=== PATIENT | male | born 1995 | race Hispanic/Latino ===

== ENCOUNTER 2021-01-22 14:28 | Outpatient (CLI) | payer OTHER, MEDICAID, SELFPAY ==
--- NOTE | ~2021-01-22 | XR_ITS ---
EXAMINATION: XR thoracic spine 3V DATE: 01/22/2021 15:03 INDICATION: Back pain TECHNIQUE: AP, lateral and lateral swimmer's views of the thoracic spine were obtained. COMPARISON: None. FINDINGS: There is no fracture, dislocation, or subluxation. The vertebral body heights, alignment, a nd intervertebral disc spaces are normal. The paravertebral soft tissues are unremarkable. IMPRESSION: 1. No acute osseous abnormality. Reviewed, dictated and finalized at location A.
--- NOTE | ~2021-01-22 | XR_ITS ---
EXAMINATION:XR cervical spine 4-5V DATE: 01/22/2021 15:03 INDICATION: Neck pain TECHNIQUE: AP, lateral, lateral swimmers and odontoid views of the cervical spine are provided. COMPARISON: None FINDINGS: Alignment is normal. The odontoid is intact. No fracture is identified. Vertebral body heig hts and disk spaces are normal. Prevertebral soft tissues are normal. IMPRESSION: 1. No acute osseous abnormality. Reviewed, dictated and finalized at location A.
--- NOTE | ~2021-01-22 | XR_ITS ---
EXAMINATION: XR lumbar spine 2-3V DATE: 01/22/2021 15:03 INDICATION: Low back pain TECHNIQUE: Anteroposterior and lateral views of the lumbar spine, and cone-down lateral view of the l umbosacral junction were obtained. COMPARISON: None. FINDINGS: There is no fracture. There appear to be bilateral L5 pars defects 2 mm of anterolisthesis of L5 on S1. There are 3 mm of retrolisthesis of L4 on L5. The vertebral body heights and interverteb ral disc spaces are maintained. IMPRESSION: 1. Likely L5 pars defects with 2 mm of anterolisthesis of L5 on S1. 2. Minimal retrolisthesis of L4 on L5. Reviewed, dictated and finalized at location A.
== END 2021-01-22 14:29 | disposition home or self-care (01) ==
PROVIDERS: Visit Provider Physician Assistant
DX: M54.5 Low back pain (principal); M54.2 Cervicalgia; M54.6 Pain in thoracic spine
CPT/HCPCS: 72050; 72072; 72100

== ENCOUNTER 2023-05-21 07:31 | Emergency (ER) | payer OTHER, SELFPAY ==
--- NOTE | ~2023-05-21 | CT_ITS ---
EXAMINATION: CT abdomen pelvis wo con DATE: 05/21/2023 09:49 INDICATION: Right flank pain TECHNIQUE: Computed tomography (CT) of the abdomen and pelvis was performed without intravenous contr ast. The dose-length product (DLP) was 882.20 mGy-cm. Automated exposure control and iterative recons truction technique were employed. COMPARISON: None FINDINGS: Minimal dependent atelectasis is present in the lung bases. The heart size is normal. The l iver is diffusely low in attenuation when compared with the spleen, consistent with hepatic steatosis . The spleen, pancreas, gallbladder, and adrenal glands are normal. The kidneys are unremarkable. No stones are identified in the kidneys, ureters, or bladder. No pathologically enlarged abdominal or pelvic lymph nodes are identified. No free intraperitoneal ga s or evidence of bowel obstruction. The appendix is normal. There is an umbilical hernia containing f at. IMPRESSION: 1. No CT correlate for the patient's symptoms. 2. Diffuse hepatic steatosis. Reviewed, dictated and finalized at location F. 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
[2023-05-21 07:34] VITALS: BP 145/85; PULSE 71; RESP 16; TEMP 36.4; O2SAT 98
[2023-05-21 08:42] VITALS: BP 142/94; PULSE 73; RESP 16; O2SAT 99
[2023-05-21 08:58] LABS: Basophils Absolute Auto 0.1 K/mm3 (0.0-0.1); Basophils Percent Auto 0.9 % (0.2-1.2); Eosinophils Absolute Auto 0.3 K/mm3 (0-0.3); Eosinophils Percent Auto 3.1 % (0-4.4); Hematocrit 43.7 % (42.0-52.0); Hemoglobin 14.4 g/dL (14.0-18.0); Immature Granulocyte Absolute 0.03 K/mm3 (0.00-0.031); Immature Granulocyte Percent A 0.3 % (0-0.5); Lymphocytes Absolute Auto 1.81 K/mm3 (0.9-3.2); Lymphocytes Percent Auto 20.9 % (18.3-44.2); Mean Corpuscular Hemoglobin 28.2 pg (26-34); Mean Corpuscular Volume 85.7 fl (80-100); Monocytes Absolute Auto 0.7 K/mm3 (0.1-0.6); Monocytes Percent Auto 8.5 % (2.6-8.5); Neutrophils Absolute Auto 5.7 K/mm3 (1.3-6.7); Neutrophils Percent Auto 66.3 % (45.5-73.1); Platelet Count Result 289 k/mm3 (150-375); Red Cell Distribution Width 12.7 % (11.5-14.5); White Blood Count 8.7 K/mm3 (4.5-10.0)
[2023-05-21 09:05] LABS: Appearance Urine Clear (Clear); Bilirubin Urine Negative (Negative); Blood Urine Negative (Negative); Color Urine Yellow (Yellow); Glucose Urine UA Negative (Negative); Ketones Urine Negative (Negative); Leukocyte Esterase Ur Negative LEU/UL (Negative); Nitrate Urine Negative (Negative); Protein Urine Negative (Negative); Specific Grav Ur 1.013 (1.001-1.035); Urobilinogen Urine 0.2 mg/dL (<2.0)
[2023-05-21 09:10] LABS: Alanine Aminotransferase 61 U/L (6-50); Albumin Level 4.2 g/dL (3.5-5.1); Alkaline Phosphatase 67 U/L (38-126); Anion Gap 7 mmol/L (8-16); Aspartate Amino Transferase 40 U/L (17-59); Bilirubin,Total 0.5 mg/dL (0.2-1.3); Blood Urea Nitrogen 9 mg/dL (9-20); Calcium 8.9 mg/dL (8.4-10.2); Carbon Dioxide 28 mmol/L (22-30); Chloride 103 mmol/L (98-107); Estimated CRCL calculation 164 ml/min; Estimated Glomerular Filt Rate > 60; Glucose 99 mg/dL (65-110); Sodium 138 mmol/L (137-145)
[2023-05-21 09:15] LABS: Add Urine Microscopic? NO
--- NOTE | 2023-05-21 09:31 | ED.GENADULT ---
HPI - General Adult General Chief complaint: Urogenital-Male Stated complaint: abdominal pain and pain with urination Time Seen by Provider: 05/21/23 09:01 Source: patient Mode of arrival: ambulatory Limitations: no limitations History of Present Illness HPI narrative: This is a 27-year-old male who presents to the ED with chief complaint of dysuria x3 days. Reports an increased urgency and frequency of urination along with stinging her he pees. Reports some lower abdominal discomfort as well. Describes it as a pressure. States that sometimes radiates to the right abdomen. Denies penile lesions, scrotal swelling or pain. Denies any concern for STDs. Denies fevers, chills, nausea, vomiting. Related Data Home Medications Medication Instructions Recorded Confirmed bupropion HCl 150 mg 24 hr tablet, mg PO 05/21/23 extended release prazosin 2 mg capsule mg 05/21/23 05/21/23 quetiapine 50 mg tablet mg 05/21/23 trazodone 100 mg tablet mg 05/21/23 venlafaxine 150 mg mg PO 05/21/23 capsule,extended release 24 hr Allergies Allergy/AdvReac Type Severity Reaction Status Date / Time No Known Allergies Allergy Unverified 05/21/23 07:32 Review of Systems Review of Systems: All systems as dictated in HPI Exam Narrative: GENERAL: Well-appearing, well-nourished, and in no acute distress. HEAD: Normocephalic, atraumatic. EYES: PERRLA and EOMI. ENT: Nares clear, no rhinorrhea or epistaxis. Mucous membranes moist. Oropharynx without tonsillar hypertrophy exudate or other lesions. NECK: Supple. No adenopathy or masses. CHEST: No respiratory distress. Clear to auscultation. No wheezes rales or rhonchi HEART: Regular rate and rhythm. No murmur heard. Normal peripheral pulses. ABDOMEN: Soft, nontender, nondistended, normal active bowel sounds. MSK: Normal range of motion. No edema. SKIN: Warm, dry, no rash. NEURO: Alert and oriented x3. No focal deficits. PSYCH: Normal mood and affect. Course Vital Signs Vital signs: Vital Signs Temperature 97.5 F L 05/21/23 07:34 Pulse Rate 71 05/21/23 07:34 Respiratory Rate 16 05/21/23 07:34 Blood Pressure 145/85 H 05/21/23 07:34 Pulse Oximetry 98 05/21/23 07:34 Temperature 97.5 F L 05/21/23 07:34 Pulse Rate 90 05/21/23 12:42 Respiratory Rate 15 05/21/23 12:42 Blood Pressure 136/91 H 05/21/23 12:42 Pulse Oximetry 100 05/21/23 12:42 Medical Decision Making MDM Narrative Medical decision making narrative: This is a 19-year-old male who presents to the ED with chief complaint of dysuria and abdominal discomfort. Vitals are normal. Exam reveals some right flank tenderness. Lab work is largely unremarkable. Urinalysis is grossly negative. STD tests for gonorrhea, chlamydia, trich are negative. CT scan does not show any acute findings. He is asymptomatic for re-evaluation. Discussed negative workup today and that he may need to follow with urology. He is agreeable with this plan. Pt will be discharged in stable condition. Return precautions given and supportive measures discussed. Pt is understanding and agreeable with plan for discharge and follow-up with PCP/specialist. Vital Signs Vital Signs: Vital Signs Temperature 97.5 F L 05/21/23 07:34 Pulse Rate 71 05/21/23 07:34 Respiratory Rate 16 05/21/23 07:34 Blood Pressure 145/85 H 05/21/23 07:34 Pulse Oximetry 98 05/21/23 07:34 Temperature 97.5 F L 05/21/23 07:34 Pulse Rate 90 05/21/23 12:42 Respiratory Rate 15 05/21/23 12:42 Blood Pressure 136/91 H 05/21/23 12:42 Pulse Oximetry 100 05/21/23 12:42 Lab Data 05/21/23 08:53 05/21/23 08:53 Labs: Lab Results 05/21/23 Range/Units 08:53 WBC 8.7 (4.5-10.0) K/mm3 RBC 5.10 (4.6-6.20) M/mm3 Hgb 14.4 (14.0-18.0) g/dL Hct 43.7 (42.0-52.0) % MCV 85.7 (80-100) fl MCH 28.2 (26-34) pg MCHC 33.0 (32-36) g/dl RDW 12.7 (11.5-14.5)
[2023-05-21 10:44] VITALS: BP 141/89; PULSE 71; RESP 19; O2SAT 100
[2023-05-21 11:48] LABS: Trichomonas Vag PCR NOT DETECTED (NOT DETECTE)
[2023-05-21 12:10] LABS: Chlamydia trachomatis NOT DETECTED (NOT DETECTE); Neisseria gonorrhoeae PCR NOT DETECTED (NOT DETECTE)
[2023-05-21 12:42] VITALS: BP 136/91; PULSE 90; RESP 15; O2SAT 100
== END 2023-05-21 12:47 | disposition home or self-care (01) ==
PROVIDERS: General Practice; Emergency Provider Physician Assistant
DX: R30.0 Dysuria (principal); K76.0 Fatty (change of) liver, not elsewhere classified
CPT/HCPCS: 36415; 74176; 80053; 81003; 85025; 87491; 87591; 87661; 99284

== ENCOUNTER 2023-08-18 08:48 | Emergency (ER) | payer OTHER, SELFPAY ==
--- NOTE | 2023-08-18 08:55 | ED.URI ---
HPI - URI/Sore Throat General Chief Complaint: Upper Respiratory Infection Stated Complaint: Sore Throat,Stomach Pain, Eye Irritation Time Seen by Provider: 08/18/23 08:53 Source: patient Mode of arrival: ambulatory Limitations: no limitations History of Present Illness HPI Narrative: Patient is a 28-year-old male who presents with 1 week of congestion, sore throat, abdominal pain and eye discharge. Reports children had same symptoms last week and resolved on their own. Patient has been taking ibuprofen. Patient states he has allergies to many outdoor allergens along with cats. Patient states he has a cat that has been sleeping with him and does not take daily allergy medicine. Has not taken any other medication for cold and flu symptoms. Denies any fever, chills, nausea, vomiting, diarrhea. Related Data Home Medications Medication Instructions Recorded Confirmed bupropion HCl 150 mg 24 hr tablet, 450 mg PO DAILY 05/21/23 08/18/23 extended release prazosin 2 mg capsule 4 mg PO HS 05/21/23 08/18/23 quetiapine 50 mg tablet 100 mg PO DAILY 05/21/23 08/18/23 trazodone 100 mg tablet 150 mg PO HS 05/21/23 08/18/23 venlafaxine 150 mg 75 mg PO DAILY 05/21/23 08/18/23 capsule,extended release 24 hr lisdexamfetamine 30 mg capsule 30 mg PO DAILY 08/18/23 08/18/23 (Vyvanse) Allergies Allergy/AdvReac Type Severity Reaction Status Date / Time No Known Allergies Allergy Verified 08/18/23 09:16 Review of Systems Review of Systems: All systems reviewed & are unremarkable except as noted in HPI and below Constitutional: Constitutional: Denies body ache(s), Denies chills, Denies fatigue, Denies fever(s), Denies headache(s), Denies malaise and Denies weakness Eyes: Eyes: Denies blurry vision, Reports eye discharge, Reports itchy eyes and Denies loss of vision ENT: Denies otalgia, Denies headache(s), Reports nasal congestion, Denies sinus pain and Reports sore throat Cardiovascular: Cardiovascular: Denies chest pain, Denies irregular heart rhythm and Denies dyspnea Respiratory: Respiratory: Denies cough and Denies dyspnea Gastrointestinal: Gastrointestinal: Reports abdominal pain, Denies diarrhea, Denies nausea and Denies vomiting Musculoskeletal: Musculoskeletal: Denies back pain, Denies myalgias and Denies arthralgias Integumentary/Breasts: Skin/Breast: Denies pruritus and Denies rash Neurologic: Denies headache(s), Denies loss of vision and Denies weakness Psychiatric: Psychiatric: Reports no additional psychiatric complaints Endocrine: Endocrine: Denies fatigue Allergic/Immunologic: Allergic/Immunologic: Denies itchy eyes PMFSH Comments At time of signature, agree with nursing past medical, surgical, social and family history. There is no relevant family history pertinent to the presenting complaint. Exam Const: General: cooperative, healthy appearing, comfortable, no acute distress and well nourished Nutritional Appearance: well nourished Orientation/consciousness: patient oriented x3 Limitations: no limitations HENMT: Head: normal to inspection, normocephalic and atraumatic Ears: hearing grossly normal bilaterally, external ears normal, TM's normal bilaterally, EAC's normal and no periauricular adenopathy Face/Nose/Sinus: Normal external nose present, Normal nasal mucous membranes and turbinates present, normal facial exam, sinuses nontender and face symmetric Face and sinus: normal facial exam, sinuses nontender and face symmetric Mouth: Yes Normal oral and palatal mucosa present, Yes lip normal, Yes tongue normal, Yes Normal salivary glands and ducts present, Yes oropharynx normal and Yes moist mucous membranes Teeth and gingiva: dentition normal Throat: uvula midline, posterior oropharynx abnormal erythema, postnasal drainage and tonsils absent Eyes: General: appearance normal, both eyes and all related structures Alignment and Position: alignment normal and position normal Periorbital: periorbital fi
[2023-08-18 09:19] VITALS: BP 126/84; PULSE 87; RESP 16; TEMP 36.4; O2SAT 98
== END 2023-08-18 09:55 | disposition home or self-care (01) ==
PROVIDERS: Emergency Provider Nurse Practitioner Family
DX: H10.33 Unspecified acute conjunctivitis, bilateral (principal); J06.9 Acute upper respiratory infection, unspecified; Z20.822 Contact with and (suspected) exposure to COVID-19; F41.9 Anxiety disorder, unspecified; F32.A Depression, unspecified; F90.9 Attention-deficit hyperactivity disorder, unspecified type; Z86.16 Personal history of COVID-19
CPT/HCPCS: 87081; 87426; 87804; 87880; 99213; G0463

== ENCOUNTER 2023-10-28 09:59 | Emergency (ER) | payer OTHER, SELFPAY ==
--- NOTE | ~2023-10-28 | XR_ITS ---
EXAMINATION: XR chest 2V DATE: 10/28/2023 11:17 INDICATION: 5 days of cough and fever TECHNIQUE: PA and lateral views of the chest were obtained. COMPARISON: Chest radiograph dated 02/28/19 FINDINGS: There is subtle opacities in the left lower lung zone suspicious for pneumonia. Calcified nodules in the left midlung zone consistent with old granulomatous disease. Right lung is clear. No pulmonary ed patel, pleural effusion or pneumothorax. The cardiomediastinal silhouette is normal. IMPRESSION: 1. Subtle opacities in the left lower lung zone which are suspicious for pneumonia. Reviewed, dictated and finalized at location A. IMPRESSION: 1. Subtle opacities in the left lower lung zone which are suspicious for pneumo luis eduardo.
[2023-10-28 10:31] VITALS: BP 124/80; PULSE 92; RESP 18; TEMP 36.4; O2SAT 100
--- NOTE | 2023-10-28 11:16 | ED.URI ---
HPI - URI/Sore Throat General Chief Complaint: Upper Respiratory Infection Stated Complaint: fever,cough Time Seen by Provider: 10/28/23 11:04 Source: patient and RN notes reviewed Mode of arrival: ambulatory Limitations: no limitations History of Present Illness HPI Narrative: Patient presents today with a 5 6 day history of productive cough, nasal congestion, body aches, fatigue, and fever up to 102. He has been taking ibuprofen, Tylenol, Benadryl, and Mucinex with some relief. States medication does bring down his fever for short periods. States he does feel intermittently short of breath as well. History of asthma for which he does use an albuterol inhaler at times. Related Data Home Medications Medication Instructions Recorded Confirmed bupropion HCl 150 mg 24 hr tablet, 450 mg PO DAILY 05/21/23 10/28/23 extended release albuterol sulfate 90 mcg/actuation 2 puff inhalation QID PRN asthma 10/28/23 10/28/23 aerosol inhaler Allergies Allergy/AdvReac Type Severity Reaction Status Date / Time No Known Allergies Allergy Verified 10/28/23 10:34 Review of Systems Review of Systems: CONSTITUTIONAL: + body aches, fatigue, fever EYES: Denies visual changes, redness, or discharge. ENT: Denies rhinorrhea, sore throat, or otalgia.+ congestion CARDIOVASCULAR: Denies chest pain, palpitations, or edema. RESPIRATORY: + cough, shortness of breath GASTROINTESTINAL: Denies abdominal pain, nausea, vomiting, or diarrhea. GENITOURINARY: Denies dysuria or hematuria. SKIN: Denies rash, itching, or wounds. MUSCULOSKELETAL: Denies back pain, joint pain, or myalgia. NEUROLOGIC: Denies headache, numbness, tingling, or weakness. PSYCH: Denies depression or anxiety. [facility] Past Medical History Medical History (Updated 10/28/23 @ 11:55 by Mellisa Godoy, AUTOMAT WATCHER, ) Asthma PTSD (post-traumatic stress disorder) Comments At time of signature, I have reviewed and agree with nursing past medical, surgical, social and family history unless otherwise noted. Please see nursing chart for further information. There is no relevant family history pertinent to the presenting complaint Exam Narrative: GENERAL: Mildly ill-appearing, well-nourished, and in no acute distress. HEAD: Normocephalic, atraumatic. EYES: EOMI. No redness or drainage. Conjunctivae normal. ENT: Mucous membranes pink and moist. Nares congested with rhinorrhea. TMs normal bilaterally. Throat normal. Uvula midline. NECK: Normal AROM. Supple. No lymphadenopathy. CHEST: No respiratory distress. Expiratory wheezing in the right upper lower lobes, otherwise clear HEART: Regular rate and rhythm. No murmur appreciated. EXTREMITIES: Normal range of motion. No edema. SKIN: Warm, dry, no rash. Capillary refill normal. Normal skin turgor. NEURO: No focal deficits. Alert and oriented x3. Gait steady. PSYCH: Normal affect. No signs of depression or anxiety. Course Course Level of Care: Express Care Visit Vital Signs Vital signs: Vital Signs Temperature 97.5 F L 10/28/23 10:31 Pulse Rate 92 10/28/23 10:31 Respiratory Rate 18 10/28/23 10:31 Blood Pressure 124/80 10/28/23 10:31 Pulse Oximetry 100 10/28/23 10:31 Oxygen Delivery Room Air 10/28/23 10:31 Temperature 97.5 F L 10/28/23 10:31 Pulse Rate 92 10/28/23 11:27 Respiratory Rate 18 10/28/23 11:27 Blood Pressure 124/80 10/28/23 10:31 Pulse Oximetry 100 10/28/23 11:27 Oxygen Delivery Room Air 10/28/23 10:31 Reviewed MDM - URI/Sore Throat MDM Narrative Medical decision making narrative: X-ray shows area suspicious for pneumonia in the left lower lobe. Patient has been given a DuoNeb during his visit. Will treat with Augmentin and azithromycin. Patient would also like cough medicine. Will treat with Tessalon Perles. Will refill his albuterol inhaler. Anticipatory guidance given. Differential Diagnosis Differential diagnosis: Likely upper respiratory
[2023-10-28 11:27] VITALS: PULSE 92; RESP 18; O2SAT 100
[2023-10-28] MEDS: IPRATROPIUM BR 0.02% INH SOLN 0.5 MG/2.5 ML VIAL INHALATION (11:34)
[2023-10-28] MEDS: ALBUTEROL SULFATE NEB 2.5 MG/3 ML INH INHALATION (11:34)
[2023-10-28 11:55] VITALS: PULSE 90; RESP 18; O2SAT 98
== END 2023-10-28 11:59 | disposition home or self-care (01) ==
PROVIDERS: Emergency Provider Nurse Practitioner
DX: J18.9 Pneumonia, unspecified organism (principal); J45.909 Unspecified asthma, uncomplicated
CPT/HCPCS: 71046; 94640; 99213; G0463

== ENCOUNTER 2024-03-29 14:19 | Emergency (ER) | payer OTHER, SELFPAY ==
[2024-03-29 14:30] VITALS: BP 121/78; PULSE 105; RESP 18; TEMP 36.8; O2SAT 96
[2024-03-29 14:32] VITALS: BP 121/78; PULSE 105; RESP 18; TEMP 36.8; O2SAT 96
--- NOTE | 2024-03-29 14:36 | ED.URI ---
HPI - URI/Sore Throat General Chief Complaint: Upper Respiratory Infection Stated Complaint: strep test Time Seen by Provider: 03/29/24 14:36 Source: patient Mode of arrival: ambulatory Limitations: no limitations History of Present Illness HPI Narrative: 28-year-old male presents with complaint of scratchy, sore throat for 1 day. Afebrile. Reports fatigue. Reports strep exposure from his children and . No other symptoms today. All systems reviewed and negative except as noted above. Related Data Home Medications Medication Instructions Recorded Confirmed bupropion HCl 150 mg 24 hr tablet, 450 mg PO DAILY 05/21/23 03/29/24 extended release albuterol sulfate 90 mcg/actuation 2 puff inhalation QID PRN asthma 10/28/23 03/29/24 aerosol inhaler aripiprazole 10 mg tablet 10 mg PO DAILY 03/29/24 03/29/24 trazodone 150 mg tablet 150 mg PO HS 03/29/24 03/29/24 zolpidem 5 mg tablet 5 mg PO HS 03/29/24 03/29/24 Allergies Allergy/AdvReac Type Severity Reaction Status Date / Time No Known Allergies Allergy Verified 03/29/24 14:22 Review of Systems Review of Systems: CONSTITUTIONAL: Denies fever, chills, or sweats. reports fatigue. EYES: Denies visual changes, redness, or discharge. ENT: Denies rhinorrhea, congestion . Reports sore throat. Denies otalgia. CARDIOVASCULAR: Denies chest pain, palpitations, or edema. RESPIRATORY: Denies cough or dyspnea. GASTROINTESTINAL: Denies abdominal pain, nausea, vomiting, or diarrhea. GENITOURINARY: Denies dysuria or hematuria. SKIN: Denies rash or itching. MUSCULOSKELETAL: Denies back pain, joint pain, or myalgia. NEUROLOGIC: Denies headache, numbness, or weakness. PSYCHIATRIC: Denies anxiety or depression. All other systems reviewed are negative, except as documented in HPI. PMFSH Past Medical History Medical History (Updated 03/29/24 @ 14:42 by Chika Sandoval NP) Asthma PTSD (post-traumatic stress disorder) Comments At time of signature, agree with nursing past medical, surgical, social and family history. There is no relevant family history pertinent to the presenting complaint. Exam Narrative: GENERAL: This is a well-nourished, well-developed patient, in no apparent distress. HEAD: normocephalic, atraumatic. EYES: PERRL. Sclera clear/white. Vision is grossly intact. EARS: External ears normal, auditory canals clear and without drainage, TMs normal without perforation. Hearing grossly intact. NOSE: External nose normal with no obvious nasal discharge, nares without redness, no rhinorrhea. THROAT: Mucous membranes moist, Erythema, swelling, tonsils 1+ bilaterally without exudates. NECK: Neck supple, non-tender without lymphadenopathy, masses or thyromegaly. CARDIOVASCULAR: Regular rate and rhythm without murmurs, gallops, or rubs. RESPIRATORY: Clear to auscultation. Breath sounds equal bilaterally. No wheezes, rales, or rhonchi. SKIN: warm, Dry, intact with no suspicious lesions or rash, good texture and turgor. NEURO: awake, alert, and oriented to person, place and time. There were no obvious focal neurologic abnormalities. EXTREMITIES: No joint tenderness, effusion, or edema noted. Course Course Level of Care: Express Care Visit Vital Signs Vital signs: Vital Signs Temperature 36.8 C 03/29/24 14:30 Pulse Rate 105 H 03/29/24 14:30 Respiratory Rate 18 03/29/24 14:30 Blood Pressure 121/78 03/29/24 14:30 Pulse Oximetry 96 03/29/24 14:30 Oxygen Delivery Room Air 03/29/24 14:30 Temperature 36.8 C 03/29/24 14:32 Pulse Rate 105 H 03/29/24 14:32 Respiratory Rate 18 03/29/24 14:32 Blood Pressure 121/78 03/29/24 14:32 Pulse Oximetry 96 03/29/24 14:32 Oxygen Delivery Room Air 03/29/24 14:32 Reviewed MDM - URI/Sore Throat MDM Narrative Medical decision making narrative: Patient is aware of diagnosis, understands and agrees to treatment plan. Anticipatory guidance given. Patient agrees
[2024-03-29 14:40] LABS: EDSTREPNEGPOS1 Positive (Negative)
== END 2024-03-29 14:44 | disposition home or self-care (01) ==
PROVIDERS: Emergency Provider Nurse Practitioner Family
DX: J02.0 Streptococcal pharyngitis (principal); J45.909 Unspecified asthma, uncomplicated
CPT/HCPCS: 87880; 99213; G0463

== ENCOUNTER 2024-07-04 09:39 | Emergency (ER) | payer OTHER, SELFPAY ==
--- NOTE | ~2024-07-04 | XR_ITS ---
CHEST RADIOGRAPH, PA AND LATERAL CLINICAL HISTORY: cough fever . COMPARISON: 10/28/2023 TECHNIQUE: PA and lateral views of the chest. FINDINGS The cardiomediastinal silhouette is unremarkable. Consolidation within the right mid to lower lung field. The remainder of the lungs are clear. Visualized osseous structures and soft tissues are unremarkable. IMPRESSION: Infiltrate within the superior segment of the right lower lobe, as detailed above. Reviewed, dictated and finalized at location A. HER OPERATOR IMPRESSION: Infiltrate within the superior segment of the right lower lobe, as detailed abo ve.
[2024-07-04 09:51] VITALS: BP 133/66; PULSE 117; RESP 18; TEMP 36.6; O2SAT 95
--- NOTE | 2024-07-04 10:04 | ED.URI ---
HPI - URI/Sore Throat General Chief Complaint: Upper Respiratory Infection Stated Complaint: cough Time Seen by Provider: 07/04/24 10:05 Source: patient Mode of arrival: ambulatory Limitations: no limitations History of Present Illness HPI Narrative: 28 y/o male presented for c/o cough, subjective fever/chills, nasal congestion, and fatigue. Onset 4 days. Denies sob, wheezing, n/v/d. Endorses family members with pneumonia. Taking Dayquil. Related Data Home Medications ?Medication ?Instructions ?Recorded ?Confirmed ?Last Taken ?Type bupropion HCl 150 mg 24 hr tablet, 450 mg PO DAILY 05/21/23 05/01/24 Unknown History extended release albuterol sulfate 90 mcg/actuation 2 puff inhalation QID PRN asthma 10/28/23 05/01/24 Unknown History aerosol inhaler aripiprazole 10 mg tablet 10 mg PO DAILY 03/29/24 05/01/24 Unknown History trazodone 150 mg tablet 150 mg PO HS 03/29/24 05/01/24 Unknown History zolpidem 5 mg tablet 5 mg PO HS 03/29/24 05/01/24 Unknown History Allergies Allergy/AdvReac Type Severity Reaction Status Date / Time No Known Allergies Allergy Verified 07/04/24 09:53 Review of Systems Review of Systems: CONSTITUTIONAL: Denies body aches, fever, chills, or sweats. EYES: Denies visual changes, redness, or discharge. ENT: Denies rhinorrhea, congestion, sore throat, or otalgia. CARDIOVASCULAR: Denies chest pain, palpitations, or edema. RESPIRATORY: Reports cough, denies sob, wheezing. GASTROINTESTINAL: Denies abdominal pain, nausea, vomiting, or diarrhea. MUSCULOSKELETAL: Denies back pain, joint pain, or myalgia. NEUROLOGIC: Denies headache, numbness, tingling, or weakness. All systems reviewed & are unremarkable except as noted in HPI and below PMFSH Past Medical History Medical History PTSD (post-traumatic stress disorder) Asthma Comments At time of signature, I have reviewed and agree with nursing past medical, surgical, social and family history unless otherwise noted. Please see nursing chart for further information. There is no relevant family history pertinent to the presenting complaint Exam Narrative: GENERAL: Well-appearing, in no acute distress. EYES: EOMI. No redness or drainage. Conjunctivae normal. ENT: Mucous membranes pink and moist. No rhinorrhea. TMs normal bilaterally. Throat normal. Uvula midline. NECK: Normal AROM. Supple. CHEST: No respiratory distress. Diminished to bases HEART: Regular rate and rhythm. No murmur appreciated. SKIN: Warm, dry, no rash. Capillary refill normal. Normal skin turgor. NEURO: Alert and oriented x3. Gait steady. PSYCH: Normal affect. Course Course Emergency Course: Patient is aware of diagnosis, understands and agrees to treatment plan. Anticipatory guidance given. Patient agrees to follow-up as directed and is aware of reasons to seek care at the emergency department. Portions of this record may have been created with voice recognition software Level of Care: Express Care Visit Vital Signs Vital signs: Vital Signs Temperature 97.8 F 07/04/24 09:51 Pulse Rate 117 H 07/04/24 09:51 Respiratory Rate 18 07/04/24 09:51 Blood Pressure 133/66 07/04/24 09:51 Pulse Oximetry 95 07/04/24 09:51 Oxygen Delivery Room Air 07/04/24 09:51 Temperature 97.8 F 07/04/24 09:51 Pulse Rate 117 H 07/04/24 09:51 Respiratory Rate 18 07/04/24 09:51 Blood Pressure 133/66 07/04/24 09:51 Pulse Oximetry 95 07/04/24 09:51 Oxygen Delivery Room Air 07/04/24 09:51 MDM - URI/Sore Throat MDM Narrative Medical decision making narrative: Discussed physical exam findings, negative flu, COVID, reviewed with patient. And reviewed chest x-ray right lung pneumonia. Advised supportive measures and signs/symptoms to go to the ER. Pt is appropriate for outpt treatment and f/u. Differential Diagnosis Differential diagnosis: Likely viral infection, bronchitis, influenza and other (Pneumonia) Imaging Data Radiologist's impression: Patient: Jordan Rivera : 1995 MR#: [id number] Age: 28 Acct:[id number] Loc: [facility] ADM Date: 07/04/24Attending Dr: Ordering Physician: Clarisse Crisostomo APRN Date of Service: 07/04/24 Procedure(s): XR chest 2V Accession Number(s): [id number] cc: Ritesh,Clarisse Denton APRN~ CHEST RADIOGRAPH, PA AND LATERAL CLINICAL HISTORY: cough fever . COMPARISON: 10/28/2023 TECHNIQUE: PA and lateral views of the chest. FINDINGS The cardiomediastinal silhouette is unremarkable. Consolidation within the right mid to lower lung field. The remainder of the lungs are clear. Visualized osseous structures and soft tissues are unremarkable. IMPRESSION: Infiltrate within the superior segment of the right lower lobe, as detailed above. Discharge Plan Discharge Clinical Impression: Pneumonia Patient Disposition: Home, Self-Care Condition: Stable Instructions: Antibiotic Form, Pneumonia (ED) Additional Instructions: Pneumonia is a lung infection that can cause a fever, cough, and trouble breathing. How it spreads: When someone with bacterial pneumonia coughs, sneezes, or talks, they release respiratory droplets into the air that can be inhaled by others.?You can also get pneumonia by touching a contaminated surface or object and then touching your mouth or nose. You're generally contagious for around 48 hours after starting antibiotics and your fever goes away.? To prevent the spread of pneumonia, you can:? ? Get vaccinated? ? Wash your hands often with soap and water for 20 seconds? ? Cover your mouth with a tissue when you cough or sneeze? ? Avoid people who are already sick with pneumonia? ? Stay home when you have pneumonia Take antibiotics as directed until complete. eat small frequent meals. Get lots of rest and drink fluids. Alternate Tylenol and ibuprofen for pain/fever [id number] cough medication can cause drowsiness, take according to package directions If you have nasal congestion, you can take Zyrtec, Claritin along with Flonase spray Call your Primary Care Doctor and make a follow-up appointment in 3 days. Go to the ER for worsening symptoms or concerns Patient Language: Upper Sorbian Prescriptions: New azithromycin [Zithromax Z-Owen] 250 mg tablet See Rx Instructions .ROUTE .COMPLEX Qty: 6 0RF Rx Instructions: For 250 mg dose pack: take 500 mg today (day 1), then 250 mg for 4 days (days 2-5) methylprednisolone [Medrol (Owen)] 4 mg tablets,dose pack See Rx Instructions .ROUTE .COMPLEX Qty: 21 0RF Rx Instructions: orally per package directions No Action albuterol sulfate 90 mcg/actuation Hfa Aerosol Inhaler 2 puff INHALATION QID PRN (Reason: asthma) trazodone 150 mg tablet 150 mg PO HS aripiprazole 10 mg tablet 10 mg PO DAILY zolpidem 5 mg tablet 5 mg PO HS bupropion HCl 150 mg tablet extended release 24 hr 450 mg PO DAILY Follow-up/Referrals: Ritesh,Stephanie [Other] Time of Disposition: 10:22
[2024-07-04 10:24] LABS: EDCOVIDSCREEN Negative (Negative); EDINFLUASCREEN Negative (Negative); EDINFLUBSCREEN Negative (Negative)
== END 2024-07-04 10:30 | disposition home or self-care (01) ==
PROVIDERS: Emergency Provider Nurse Practitioner Family
DX: J18.9 Pneumonia, unspecified organism (principal); Z20.822 Contact with and (suspected) exposure to COVID-19
CPT/HCPCS: 71046; 87426; 87804; 99213; G0463